=== PATIENT | female | born 1975 | race Two or more races ===

== ENCOUNTER 2024-08-01 08:06 | Outpatient (CLI) | payer OTHER | END 2024-08-01 08:09 | disposition home or self-care (01) | LOC: LAB 08:06 | DX: E55.9 Vitamin D deficiency, unspecified (principal); E03.8 Other specified hypothyroidism; E04.2 Nontoxic multinodular goiter ==

== ENCOUNTER 2024-08-01 08:53 | Outpatient (CLI) | payer OTHER | END 2024-08-01 09:00 | disposition home or self-care (01) | LOC: SONOGRAMA 08:53 | PROVIDERS: ATTEND Internal Medicine Endocrinology, Diabetes & Metabolism | DX: E04.2 Nontoxic multinodular goiter (principal) ==

== ENCOUNTER 2024-12-19 08:38 | Outpatient (CLI) | payer OTHER | END 2024-12-19 08:39 | disposition home or self-care (01) | LOC: LAB 08:38 | PROVIDERS: ATTEND Internal Medicine Endocrinology, Diabetes & Metabolism | DX: E03.8 Other specified hypothyroidism (principal); E04.1 Nontoxic single thyroid nodule; Z68.35 Body mass index [BMI] 35.0-35.9, adult; E55.9 Vitamin D deficiency, unspecified ==

== ENCOUNTER → 2025-06-16 07:00 | Outpatient (CLI) | payer OTHER ==
[2025-06-16 07:50] LABS: BASO % 0.7 % (0.1-1.2); EOS # 0.11 (0.04-0.54); EOS % 1.3 % (0.7-7.0); LYMPH # 2.29 (1.18-3.74); LYMPH % 26.9 % (19.3-53.1); MEAN PLATELET VOLUME 8.90 fl (9.4-12.4); MONO # 0.83 (0.24-0.82); MONO % 9.8 % (4.7-12.5); NEUT # 5.17 (1.56-6.13); NEUT % 60.8 % (34.0-71.1); RED CELL DISTRIBUTION WIDTH 17.2 % (11.6-14.4)
[2025-06-16 08:42] LABS: ALT/SGPT 30.0 U/L (12-78); AST/SGOT 17.0 U/L (15-37); BILIRUBIN TOTAL 0.73 mg/dL (0.3-1.2); BUN CREA RATIO 19.0 (7.0-25.0); CHOL HDL RATIO 4.7 (0-5.0); CREATININE SERUM 0.67 mg/dL (0.55-1.02); FREE TRIODOTIRONINE 2.42 pg/ml (2.18-3.98); GFR 94.34; GLOBULINA 4.7 G/DL (2.4-3.5); GLUCOSE FASTING 81.0 mg/dL (65-100); HDL 47.0 mg/dl (40-60); LDL 158.0 mg/dl (0-130); OSMOLALITY SERUM 275.0 MOSM/KG (275-295); T4 TOTAL 12.62 UG/DL (4.8-13.9); TSH 2.45 uIU/mL (0.358-3.74); VLDL 16.0 (0-39)
== END | disposition home or self-care (01) ==
LOC: LAB 07:00
DX: D64.9 Anemia, unspecified (principal); E76.219 Morquio mucopolysaccharidoses, unspecified; E78.5 Hyperlipidemia, unspecified; E03.9 Hypothyroidism, unspecified; E55.9 Vitamin D deficiency, unspecified